=== PATIENT | female | born 1950 | race Caucasian/White ===

== ENCOUNTER → 2021-03-31 14:48 | Outpatient (CLI) | payer MEDICARE, SELFPAY ==
--- NOTE | 2021-03-31 14:51 | US_ITS ---
STUDY: ULTRASOUND OF THE FEMALE PELVIS - COMPLETE REASON FOR EXAM: Female, 70 years old. Pelvic fracture. Preop hysterectomy. Postmenopausal. A pessary is present during the transvaginal ultrasound. This was removed for the transvaginal exam. TECHNIQUE: Transabdominal and Transvaginal TECHNICAL QUALITY: Adequate. COMPARISON: None. FINDINGS: The uterus is anteverted and is in a midline position. The uterus measures 6.4 x 4.4 x 2.8 cm. Normal uterine cervix. The endometrium measures 3 mm in thickness, and is fluid distended. There is no demonstrated endometrial mass. There is no demonstrated myometrial mass. I.U.D. - The patient does not have an I.U.D. The right ovary is not visualized.. There is no visualized right adnexal mass or complex lesion. The left ovary is not visualized. There is no visualized left adnexal mass or complex lesion. There is no fluid in the cul-de-sac. The pre void volume of the bladder was for 33 ml. Bilateral ureteroceles are noted. The bladder is otherwise normal. Polycystic ovary disease: No. US/Pelvic (Non ) IMPRESSION: 1. Fluid within the endometrial canal. There is no evidence of any endometrial thickening or other uterine abnormality. 2. Nonvisualization the ovaries. 3. Bilateral ureteroceles otherwise normal urinary bladder. Electronically Signed: Brian Andres DO at 16:13 EDT Tel [phone], Service support ,
--- NOTE | 2021-03-31 14:51 | US_ITS ---
STUDY: ULTRASOUND OF THE FEMALE PELVIS - COMPLETE REASON FOR EXAM: Female, 70 years old. Pelvic fracture. Preop hysterectomy. Postmenopausal. A pessary is present during the transvaginal ultrasound. This was removed for the transvaginal exam. TECHNIQUE: Transabdominal and Transvaginal TECHNICAL QUALITY: Adequate. COMPARISON: None. FINDINGS: The uterus is anteverted and is in a midline position. The uterus measures 6.4 x 4.4 x 2.8 cm. Normal uterine cervix. The endometrium measures 3 mm in thickness, and is fluid distended. There is no demonstrated endometrial mass. There is no demonstrated myometrial mass. I.U.D. - The patient does not have an I.U.D. The right ovary is not visualized.. There is no visualized right adnexal mass or complex lesion. The left ovary is not visualized. There is no visualized left adnexal mass or complex lesion. There is no fluid in the cul-de-sac. The pre void volume of the bladder was for 33 ml. Bilateral ureteroceles are noted. The bladder is otherwise normal. Polycystic ovary disease: No. US/Transvaginal Non- IMPRESSION: 1. Fluid within the endometrial canal. There is no evidence of any endometrial thickening or other uterine abnormality. 2. Nonvisualization the ovaries. 3. Bilateral ureteroceles otherwise normal urinary bladder. Electronically Signed: Brian Andres DO at 16:13 EDT Tel [phone], Service support ,
== END ==
PROVIDERS: PCP Family Medicine; Referring Provider Obstetrics & Gynecology; Visit Provider Obstetrics & Gynecology
DX: R10.2 Pelvic and perineal pain (principal)
CPT/HCPCS: 76830; 76856

== ENCOUNTER 2021-05-19 05:16 | Day surgery (SDC) | payer MEDICARE, SELFPAY ==
--- NOTE | 2021-05-18 14:54 | EKG12_ITS ---
Test Reason : PRE-OP Blood Pressure : / mmHG Vent. Rate : 066 BPM Atrial Rate : 066 BPM P-R Int : 184 ms QRS Dur : 076 ms QT Int : 422 ms P-R-T Axes : 051 000 044 degrees QTc Int : 442 ms Sinus rhythm with frequent Premature ventricular complexes Low voltage QRS Borderline ECG Confirmed by LEEROY PINEDA, GAYATRI ([id number]), communications editor PAXTON WONG ([id number]) on 05/19/2021 9:53:08 AM Referred By: Anna Joshi Confirmed By:GAYATRI UMAÑA MD
[2021-05-18 15:56] LABS: Absolute Lymphocyte Count 2.62 X10^3/uL (0.83-4.51); Absolute Neutrophil Count 4.6 X10^3/uL (2.0-7.7); Basophil# 0.07 X10^3/uL; Basophil% 0.8 % (0-1); Eosinophil# 0.73 X10^3/uL; Eosinophils% 8.3 % (0-5); Hemoglobin 12.5 g/dL (12.0-15.0); Lymphocyte # 2.62 X10^3/ul (0.83-4.51); Lymphocyte % 29.9 % (19-41); Mean Corp Hgb Conc 32.9 g/dL (32-36); Mean Corpuscular Hgb 29.5 pg (27.0-32.0); Mean Corpuscular Volume 89.6 fL (81-99); Mean Platelet Vol. 9.6 fl (6.2-12.0); Monocyte# 0.67 X10^3/uL; Monocyte% 7.6 % (0-10); NRBC Flagged by Analyzer 0 % (0-5); Neutrophil # 4.63 X10^3/uL (2.7-7.7); Neutrophil % 52.8 % (47-70); Platelet Count 315 K/mm3 (150-450); RBC Distribution Width SD 49.3 fl (35.1-43.9); Red Blood Count 4.24 M/mm3 (4.2-5.4); White Blood Count 8.8 K/mm3 (4.4-11.0)
[2021-05-18 16:13] LABS: Magnesium 2.3 mg/dL (1.6-2.6)
[2021-05-18 16:21] LABS: AST(SGOT) 28 U/L (15-37); Alanine Aminotransfer ALT/SGPT 47 U/L (13-56); Albumin, Serum 3.8 g/dL (3.2-5.0); Alkaline Phosphatase 76 U/L (45-117); Anion Gap 5 (5-15); BUN 20 mg/dL (7-18); BUN/Creat Ratio 18.2 RATIO (10-20); Calcium,Total 9.5 mg/dL (8.5-10.1); Chloride 108 mmol/L (98-107); EST Glomerular Filtration Rate 52 mL/min (>60); Est Glom Filt Rate - Afr Amer 63 mL/min (>60); Estimated Creatinine Clearance 49.73 ml/min; Globulin 3.9 g/dL (2.2-4.2); Glucose 102 mg/dL (74-106); Potassium 4.3 mmol/L (3.5-5.1); Protein, Total 7.7 g/dL (6.4-8.2); Sodium Level 138 mmol/L (136-145)
[2021-05-19] VITALS (24 sets, daily range): BP systolic 76–112; BP diastolic 50–73; PULSE 44–63; RESP 14–18; TEMP 36.1–37.1; O2SAT 93–100; BMI 26.9; BMI 27.0
--- NOTE | 2021-05-19 | HYST_PTH ---
PATIENT: SKYLAR RO LOC: [facility] [place] U#:[id number] AGE/SX: 70/F ROOM: RE05/19/[address]: Dr. Anna Joshi MD : 1950 BED: DIS: 05/20/2021 SPEC #: [id number] RECD: 05/19/21 12:37 STATUS: JEANETTE REValarie #: [id number] CLIFFORD: 05/19/21 00:[address]: Anna Joshi DEPT: SURGICAL PATHOLOGY RECD BY: Sandeep Kenyon ENTERED: 05/19/21 12:38 SP TYPE: HYSTERECT OTHR DR: MD Dr. Linh Elliott DO Tissues: Uterus, NOS Procedures: Surgery Specimen Level V HEADER OPERATION: ERAS, vaginal hysterectomy, salpingo-oophorectomy PRE-OP DIAGNOSIS: Incomplete uterovaginal prolapse TISSUE SUBMITTED: Uterus, cervix, bilateral tubes and bilateral ovaries MICROSCOPIC DIAGNOSIS Uterus, cervix and bilateral fallopian tubes and ovaries, vaginal hysterectomy and bilateral salpingo-oophorectomy: Cervix ? mild chronic cystic cervicitis. Endometrium ? simple cystic hyperplasia without atypia. Myometrium ? an intramural leiomyoma (0.5 cm in diameter). Bilateral fallopian tubes - no pathologic diagnosis. Bilateral ovaries - no pathologic diagnosis. SJ:yobany 05/20/2021 MICROSCOPIC DESCRIPTION Slides are reviewed. GROSS DESCRIPTION Received in fixative is one container labeled with the patient's name and designated uterus, cervix, bilateral tubes and ovaries. The specimen consists of a hysterectomy specimen consisting of uterus with cervix and detached bilateral fallopian tubes and ovaries. The uterus with cervix weighs 37 gm and measures 7 x 3.5 x 2.5 cm. The serosal surface is zuluaga, glistening. The ectocervical mucosa is unremarkable. The external os is oval in contour. The endocervical canal measures 2.5 cm in thickness. The endocervical mucosa is zuluaga, glistening and unremarkable. The triangular endometrial cavity measures 3.5 cm in length and up to 1.5 cm in width. The endometrium is zuluaga, glistening without any mass lesion and measures 0.1 cm in thickness. Sections of the uterine wall do not reveal mass lesion and measures up to 1.5 cm in thickness. One fallopian tube measures 7 cm in length and 0.5 cm in diameter. The fimbrial end is identified. Sections reveal unremarkable cut surfaces. The adjacent ovary measures 1.2 x 0.5 x 0.5 cm. Sections reveal unremarkable cut surfaces. The second fallopian tube measures 6 cm in length and 0.5 cm in diameter. The fimbrial end is identified. Sections reveal unremarkable cut surfaces. No tubo-ovarian adhesions are identified. The adjacent second ovary measures 2 x 0.5 x 0.3 cm. Sections reveal unremarkable cut surfaces. Optometric Aide sections are submitted in eight cassettes as follows: 1 - anterior cervix, 2??posterior cervix, 3 & 4 - anterior uterine wall, 5 & 6 - posterior uterine wall, 7 - one fallopian tube and adjacent ovary, 8 - second fallopian tube and adjacent ovary. / SUPRIYA:yobany 05/19/21 TC:5 CPT: 25070
--- NOTE | 2021-05-19 05:19 | HP.PCM_ITS ---
History and Physical Date of Admission: 05/19/21 Intake Visit Reasons: [facility] [employer] medicaid form needs signed Chief Complaint: Pre op [facility] [employer] Tetry[employer] Boiling Tub Operator Required: No Is patient in pain?: No Allergies No Known Allergies Allergy (Verified 12/20/18 10:38) Medications NK 04/30/21 [History Confirmed 04/30/21] Is last menstrual period known: No Post menopausal: No Patient : No : No PFSH Medical History History of melanoma Migraines Seasonal allergies Surgical History History of torn meniscus of left knee S/P left knee surgery Family History Mother Diabetes Pancreatic cancer Father Diabetes Myocardial infarction Grandmother Diabetes Emphysema lung Social History Smoking Status: Former smoker alcohol intake: never substance use type: does not use caffeine: Yes what type of physical activity do you participate in: none seatbelt use: always do you feel safe at home: Yes additional social history: - retired from [employer] medicaid form needs signed Details: SKYLAR RO is a 70 year old who presents for Female Reproductive History Menopausal Symptoms: No night sweats Pregancy History 2 Elective abortions Hx Para 2 Spontaneous abortions Hx # Term Pregnancies Ectopic pregnancies Hx # Pregnancies Multiple births # of living children Past Pregnancies Del. Date Name GA/Weeks Outcome Route Bth Weight Gen Labor Lgth Anesthesia Del Locatn Provider FOB Unknown -1968 Unknown -1969 ROS Const Constitutional: Denies fatigue, night sweats, weight gain or weight loss ENT ENT: Reports system reviewed and no additional complaints, except as documented Cardio Card: Denies chest pain Resp Resp: Denies cough or dyspnea GI GI: Reports as per HPI; Denies abdominal pain, constipation, nausea or vomiting : Reports urinary frequency, urinary incontinence and urinary urgency; Denies nipple discharge, urinary hesitancy, vaginal discharge, vaginal dryness, vaginal odor or vaginal pruritus Musc Musc: Denies arthralgias, back pain or muscle weakness Skin Skin/Breast: Denies alopecia, change in hair, dry skin, breast mass, breast pain, breast skin changes or nipple discharge Neuro Neuro: Reports system reviewed and no additional complaints, except as documented Psych Psych: Reports system reviewed and no additional complaints, except as documented Endo Endo: Denies cold intolerance, excessive sweating, heat intolerance or polydipsia Gerry/Lymph Hematologic/Lymphatic: Denies easy bleeding, Denies easy bruising and Denies lymphadenopathy Exam Const General: cooperative, healthy appearing, comfortable, no acute distress and well developed Orientation: alert [facility] Head: normal to inspection and normocephalic Ears: hearing grossly normal bilaterally and external ears normal Nose: external nose normal and nares normal Face and sinus: normal facial exam Neck Neck: normal visual inspection and no lymphadenopathy Thyroid: thyroid normal Chest Chest palpation & inspection: normal inspection of the chest Resp Effort & Inspection: normal respiratory effort Auscultation: clear to auscultation bilaterally Cardio Rate: regular rate Rhythm: regular rhythm Heart Sounds: S1 normal and S2 normal GI Inspection: normal to inspection and non-distended Palpation: soft and no hepatosplenomegaly General: bladder normal to palpation External Female Exam: normal external appearance and normal appearance of the urethra Urethra: normal appearance of the urethra, normal palpation and no discharge Speculum Exam - Vagina: normal appearance of the vagina and normal vaginal discharge Speculum Exam - Cervix: normal appearance of the cervix and nontender Bimanual Exam- Vagina & Uterus: normal bimanual exam, uterine size normal, bladder normal to palpation, uterine shape normal, No tender, uterine mobility normal, consistency normal, normal palpation and non-tender Bimanual Exam- Adnexa, other: normal adnexae, adnexae mobile, no masses and normal Pelvic Support: normal Musc Other: gross motor intact no deficits, full bilateral strength Skin General: no rashes or lesions noted Neuro General: patient alert, patient awake, moves all extremities and no focal motor deficits Motor: muscle tone normal throughout Extrem General: normal to inspection and no pedal edema Psych Appearance: grossly normal Mental Status: mental status grossly normal Affect: normal affect Speech and Movement: speech and movement normal Coding Level of Care Code No Charge Diagnoses Incomplete uterovaginal prolapse N81.2 Assessment and Plan Assessment and Plan (1) Incomplete uterovaginal prolapse: Status: Acute Comment: plan TVHBSO combo case with Alexandra. Plan - Dr. Anna Joshi MD: After discussing the patient's diagnosis and treatment plan options, patient wishes to proceed with surgical management. I have discussed with the patient the risks, benefits, and alternatives of the procedure which include but are not limited to risks of anesthesia, bleeding, infection, possible damage to bowel, bladder, or surrounding vasculature which could lead to additional surgery to evaluate any complications. Patient agrees to procedure and wishes to proceed. ACOG/uptodate references given for additional information regarding procedure. UPDATE- I have seen the patient and performed any clinically relevant updates to the history and physical exam. Anna Joshi MD
[2021-05-19] MEDS: Enoxaparin 40 MG/0.4 ML Syringe SC (06:21)
[2021-05-19] MEDS: Celecoxib 200 MG Capsule 400 MG PO (06:22)
[2021-05-19] MEDS: Acetaminophen 500 MG Tablet 1000 MG PO ×3 (06:22→17:49)
[2021-05-19] MEDS: Scopolamine 1mg/72hr Patch 1 PATCH TD (06:22)
[2021-05-19] MEDS: Gabapentin 600 MG Tablet PO (06:22)
[2021-05-19] MEDS: Lactated Ringers 1,000 ML 40 ML IV ×3 (06:23→11:30)
[2021-05-19] MEDS: dexAMETHasone 10 MG/ML Vial 8 MG IV (06:23)
--- NOTE | 2021-05-19 07:37 | PCM.OPRPT ---
Problems Associated Problem List Diagnoses (1) Incomplete uterovaginal prolapse: Report of Operation Pre-Operative Diagnosis: see PL Post-Operative Diagnosis: same Surgery/Procedure Performed:: TVH BSO Description of Surgical Findings:: nl uterus tubes ovaries Type of Anesthesia: General Specimen's removed: uterus, tubes, ovaries Drains: aaron Fluids Replaced: crystalloid Description of Procedure: Patient was taken to the operating room and was placed under general anesthesia was prepped and draped in normal sterile fashion in the dorsal lithotomy position. Preoperative antibiotics and SCDs and Aaron catheter was placed inside the bladder. Weighted speculum was placed in the vagina and the anterior and posterior lip of the cervix was grasped with 2 Janelle clamps and circumferentially injected with dilute vasopressin. A circumferential incision was made with a scalpel and the posterior cul-de-sac was entered into sharply and a longneck speculum was placed. The anterior cul-de-sac was also dissected down and entered into sharply and the uterosacral ligaments were clamped cut and suture ligated bilaterally followed by the cardinal ligaments which were Clamped cut and suture ligated bilaterally with 0 Monocryl. The uterus serially descended and progressive bites were taken bilaterally up to the level of the utero-ovarian ligament bilaterally which was clamped transected and double ligated with 0 Monocryl suture and 0 Vicryl free tie. Bilateral fallopian tubes and ovaries were well visualized and noted be within normal limits and the IP ligament was transected across the base with a kenneth clamp, then ovaries and tubes removed and the pedicle double ligated with O monocryl. Excellent hemostasis was noted. The vagina was closed with [id number] 0 Vicryl pop offs including the posterior and anterior peritoneum in the reapproximation. Excellent hemostasis was noted. Then Dr. Morris began her portion of the procedure. Grafts/Implants Used: none Complications none Admit VTE Documentation VTE Present on Admission: No VTE Mechan Device Prophylaxis: SCD's VTE Pharm Prophylaxis ordered?: Yes Multi Select Codes Urinary/Genital Urinary/Genital CPT Codes: 95259 TVH+BS/O <250gr uterus
[2021-05-19] MEDS: Cefazolin 2 GM in 0.9% Normal Saline 100 ML IV (07:42)
[2021-05-19] MEDS: Lubricating Jelly 60 GM Tube 30 GM TOPICAL (07:55)
[2021-05-19 08:05] LABS: Bedside Glucose 108 mg/dL (70-110)
[2021-05-19] MEDS: Vasopressin 20 UNITS/ML Vial (11:25)
[2021-05-19] MEDS: Estrogens,Conj. 1 Tube 1 DOSE (11:27)
--- NOTE | 2021-05-19 11:34 | OP.PCM_ITS ---
Problems Associated Problem List Diagnoses (1) Incomplete uterovaginal prolapse: (2) TAD (stress urinary incontinence, female): Report of Operation Date of Procedure: 05/19/21 Pre-Operative Diagnosis: Incomplete uterovaginal prolapse, stress urinary incontinence Post-Operative Diagnosis: Same Surgery/Procedure Performed:: Anterior and posterior repair with dermis, bilateral sacrospinous ligament fixation, mid urethral sling insertion, cystourethroscopy Surgeon: Kay Morris Type of Anesthesia: General Estimated Blood Loss (mL): 250cc Description of Procedure: The patient is a 70-year-old female with pelvic organ prolapse and incontinence who presents for surgical intervention. Outpatient testing included urodynamics and cystoscopy. Informed consent was obtained. The patient was taken to the operating room and placed on the operating room table. Anesthesia monitored the head, neck, airway, IV access and vital signs throughout the case. Once anesthesia was appropriate ministered the patient was placed into dorsal lithotomy position was prepped and draped in usual sterile fashion. A Hairston catheter was inserted and the bladder was drained. Dr. Joshi subsequently performed her portion of the procedure and close the vaginal cuff. At this time the anterior vaginal wall was isolated and injected with vasopressin for hydrostatic dissection and hemostatic control. A midline vertical incision was made and sharp and blunt dissection was performed on both sides. The vaginal mucosa was not of good quality and continuously tore throughout the procedure. Very carefully blunt dissection was performed down to the area of the ischial spine bilaterally and the sacrospinous ligaments were freed from surrounding tissues. The Capio device was then used to pass an Ethibond suture through each sacrospinous ligament. The suture was then brought through the corner of the dermis and out into the vaginal mucosa, at the level of the apex. The dermis was then trimmed and sutured using interrupted 2-0 Vicryl at the bladder neck area and bilaterally at the white line. This procedure was performed on both sides. When the dermis lay flat against the bladder, the vaginal mucosa was closed in running interlocking fashion and the Ethibond sutures were tied into position reducing to the apical prolapse. The posterior vaginal wall remained significantly weak and prolapsed. The decision was made to repeat the same process posteriorly with Ethibond sutures and dermis bilaterally through the sacrospinous ligaments. This was performed without difficulty and the dermis was attached using 2-0 Vicryl interrupted sutures to the apex of the vaginal mucosa and bilaterally to the rectovaginal fascia, and at the area adjacent to the perineal body. The perineal body was brought together using 2 layers of interrupted 2-0 Vicryl suture. At this time the vaginal mucosa was closed over the dermis using running interlocking 2-0 Vicryl. Attention was then turned towards the mid urethra which was injected with vasopressin. A midline incision was made. Sharp and blunt dissection was per formed on either side of the urethra. Using the trocar, the time was passed into the obturator complex bilaterally and the sling was positioned against the urethra using the tensioning suture. The tensioning suture was then cut. The vaginal mucosa was then closed using running interlocking 2-0 Vicryl. At this time the Hairston catheter was removed. The patient had been given intravenous methylene blue. The cystoscope was then inserted through the urethra under direct visualization into the urinary bladder. Bilateral ureteral orifices were located on the area of the trigone. Both orifices were extremely small in caliber most consistent with a ureterocele. At this time blue jets of urine were observed bilaterally from each ureter. The remainder of the bladder mucosa was within normal limits with no evidence of injury, foreign body or hemorrhage. The urethra was visualized upon removal of the cystoscope as well and there were no injuries or abnormalities identified. At this time the cystoscope was removed and the Hairston catheter was replaced with 10 cc in the balloon. At this time the vagina was filled with estrogen cream and vaginal packing. The patient was then awakened and taken to the recovery room in good condition. There were no complications during this procedure. Grafts/Implants Used: Dermis, Altis mid urethral sling Complications None Admit VTE Documentation VTE Present on Admission: Yes VTE Mechan Device Prophylaxis: SCD's VTE Pharm Prophylaxis ordered?: Yes
[2021-05-19] MEDS: Lactated Ringers 1,000 ML 70 ML IV ×2 (12:31→17:46)
[2021-05-19] MEDS: Ketorolac 30 MG/ML Syringe IV ×2 (12:33→17:45)
[2021-05-19 13:38] LABS: Hematocrit 31.5 % (37-47); Hemoglobin 10.1 g/dL (12.0-15.0); Mean Corp Hgb Conc 32.1 g/dL (32-36); Mean Corpuscular Hgb 29.3 pg (27.0-32.0); Mean Corpuscular Volume 91.3 fL (81-99); Mean Platelet Vol. 9.6 fl (6.2-12.0); Platelet Count 242 K/mm3 (150-450); RBC Distribution Width CV 14.7 % (11.6-14.6); RBC Distribution Width SD 49.2 fl (35.1-43.9); Red Blood Count 3.45 M/mm3 (4.2-5.4); White Blood Count 11.5 K/mm3 (4.4-11.0)
--- NOTE | 2021-05-19 14:05 | SUR.PHASEI ---
PT AWAKENS EASILY. BUT VERY DROWSY
--- NOTE | 2021-05-19 14:08 | PCM.DC ---
Discharge Instructions Diet Discharge Diet: No restrictions Activity Discharge Activity: Return to Normal Activity, May Not Drive (while taking narcotic pain medications.) and May Shower May resume sexual activity in: 6-8 weeks Dressing / Incision Call your doctor if your incision/area has: Continuous Slow Oozing, Sudden Increased Bleeding, Increased Pain/ Swelling, Increased Redness and Foul Smelling Discharge Call your doctor if you observe: Fever of 101 or Higher, Inability to urinate, Inability to have a bowel movement and Using more than 1 pad per hour Follow Up Care Please Follow Up With: Anna Joshi MD Test Results: Test results from this visit will be discussed in further detail at your follow-up appointment, if applicable. Discharge Plan Admission Primary Reason for Your Visit: vaginal hysterectomy Attending Provider: Anna Joshi Primary Care Provider: Linh Juarez Consulting Providers: Kay Morris Discharge Orders/Prescriptions Prescriptions: New oxycodone-acetaminophen [Percocet] 5-325 mg tablet 1 tab PO Q6H PRN (Reason: pain) 7 Days Qty: 20 RF: 0 naproxen [naproxen] 500 MG tablet 500 mg PO BID PRN PRN (Reason: Pain) Qty: 30 RF: 1 Continued alendronate 70 mg tablet 70 mg PO SA RF: 0 naproxen 250 mg Tablet 500 mg PO BID PRN (Reason: Pain) RF: 0 zolmitriptan 5 mg tablet 5 mg PO PRN PRN (Reason: MIGRAINES) RF: 0 estradiol 0.01 % (0.1 mg/gram) cream 1 applic VAGINAL .3 TIMES WEEKLY RF: 0 Women's One Daily 18 mg iron-400 mcg-500 mg Ca Tablet 1 tab PO DAILY RF: 0 Referrals / Follow Up: Linh Juarez DO [Primary Care Provider] - Disposition Disposition (needs filled in before D/C Order can be placed): Home, Self Care
--- NOTE | 2021-05-19 20:20 | PCS.PANDOC ---
PANDEMIC DOCUMENTATION INITIATED: Date: 03/02/2021 Time: 190
[2021-05-19] MEDS: Docusate Sodium 100 MG Capsule PO (22:29)
[2021-05-19] MEDS: Cephalexin 500 MG Capsule PO (22:29)
[2021-05-20] VITALS: BP 102/53; PULSE 59; RESP 18; TEMP 36.7; O2SAT 98; BMI 27.0
[2021-05-20] MEDS: Acetaminophen 500 MG Tablet 1000 MG PO ×2 (00:05→05:35)
[2021-05-20] MEDS: Ketorolac 30 MG/ML Syringe IV ×3 (00:06→12:31)
[2021-05-20 05:08] VITALS: BMI 27.0
[2021-05-20 05:18] LABS: Hematocrit 29.3 % (37-47); Hemoglobin 9.6 g/dL (12.0-15.0); Mean Corp Hgb Conc 32.8 g/dL (32-36); Mean Corpuscular Volume 88.5 fL (81-99); Mean Platelet Vol. 9.4 fl (6.2-12.0); Platelet Count 229 K/mm3 (150-450); RBC Distribution Width CV 14.9 % (11.6-14.6); RBC Distribution Width SD 48.4 fl (35.1-43.9); Red Blood Count 3.31 M/mm3 (4.2-5.4); White Blood Count 13.1 K/mm3 (4.4-11.0)
[2021-05-20] MEDS: 0.9% Saline Lock 10 ML Syringe IV ×2 (05:37→12:40)
[2021-05-20 05:45] VITALS: BP 120/62; PULSE 51; RESP 18; TEMP 36.8; O2SAT 97
--- NOTE | 2021-05-20 07:58 | PCM.PN.OB ---
Subjective Subjective patient recovering well, denies CP, SOB, N, or V. patient is up to bedside,tolerating adequate po, and pain is controlled with oral medications. Hairston cath remains Objective Data Objective Data Vital Signs: Vital Signs Temp Pulse Resp BP Pulse Ox 98.2 F 51 L 18 120/62 97 05/20/21 05:45 05/20/21 05:45 05/20/21 05:45 05/20/21 05:45 05/20/21 05:45 Oxygen Flow Rate (L/min) 2 Oxygen Delivery Method Room Air Weight: 182 lb 12.211 oz Body Mass Index (BMI) 26.9 Intake & Output: Intake and Output for Last 24 Hours 05/18/21 05/19/21 05/20/21 23:59 23:59 23:59 Intake Total 4277.67 / 4277.67 Output Total 810 / 810 450 / 450 Balance 3467.67 / 3467.67 -450 / -450 Lab / Micro Data Result Diagrams: 05/20/21 05:02 05/18/21 15:04 Labs: Laboratory Results - last 24 hr 05/19/21 06:01: POC Glucose 108 05/19/21 12:53: WBC 11.5 H, RBC 3.45 L, Hgb 10.1 L, Hct 31.5 L, MCV 91.3, MCH 29.3, MCHC 32.1, RDW Std Deviation 49.2 H, RDW Coeff of Venkata 14.7 H, Plt Count 242, MPV 9.6 05/20/21 05:02: WBC 13.1 H, RBC 3.31 L, Hgb 9.6 L, Hct 29.3 L, MCV 88.5, MCH 29.0, MCHC 32.8, RDW Std Deviation 48.4 H, RDW Coeff of Venkata 14.9 H, Plt Count 229, MPV 9.4 Micro: Microbiology 05/18/21 16:59 Nasal Secretion SARS-CoV-2 Antigen (Rapid) - Final Physical Exam Const alert, oriented x3 and no apparent distress Resp normal respiratory effort GI soft to palpation and non-distended Inspection: incision other (dressing dry and intact) Narrative: Minimal drainage on peripad Bladder / Kidney Exam: catheter in place Assessment & Plan (1) Incomplete uterovaginal prolapse: COMMENT: plan TVHBSO combo case with [place]. (2) TAD (stress urinary incontinence, female): PLAN: patient is s/p 1 POD 1 1. routine ERAS protocol postop care- increase ambulation, encourage oral intake and oral control of pain. lovenox and scds for dvt prophylaxis. See Dr Morris orders for further management and discharge.
[2021-05-20 08:40] VITALS: BMI 27.0
[2021-05-20] MEDS: Docusate Sodium 100 MG Capsule PO (10:37)
[2021-05-20] MEDS: Enoxaparin 40 MG/0.4 ML Syringe SC (10:37)
[2021-05-20] MEDS: Cephalexin 500 MG Capsule PO (10:37)
[2021-05-20 11:45] VITALS: BP 118/62; PULSE 58; RESP 18; TEMP 36.6; O2SAT 98
--- NOTE | 2021-05-20 12:24 | PCM.PN.GU ---
Subjective Subjective Patient is sitting up in bed. Just finished lunch. She has not been out of bed to ambulate yet. She has not yet voided and her catheter was removed approximately 4 hours ago. She is having stress urinary incontinence every time she coughs. She is complaining of a sore throat from the intubation yesterday. Her pain is well managed but she complains of not sleeping well last night. Objective Data Objective Data Vital Signs: Vital Signs Temp Pulse Resp BP Pulse Ox 98.2 F 51 L 18 120/62 97 05/20/21 05:45 05/20/21 05:45 05/20/21 05:45 05/20/21 05:45 05/20/21 05:45 Oxygen Flow Rate (L/min) 2 Oxygen Delivery Method Room Air Weight: 82.9 kg Body Mass Index (BMI) 26.9 Intake & Output: Intake and Output for Last 24 Hours 05/18/21 05/19/21 05/20/21 23:59 23:59 23:59 Intake Total 4277.67 / 4277.67 564.83 / 564.83 Output Total 810 / 810 700 / 700 Balance 3467.67 / 3467.67 -135.17 / -135.17 Lab / Micro Data Result Diagrams: 05/20/21 05:02 05/18/21 15:04 Labs: Laboratory Results - last 24 hr 05/19/21 12:53: WBC 11.5 H, RBC 3.45 L, Hgb 10.1 L, Hct 31.5 L, MCV 91.3, MCH 29.3, MCHC 32.1, RDW Std Deviation 49.2 H, RDW Coeff of Venkata 14.7 H, Plt Count 242, MPV 9.6 05/20/21 05:02: WBC 13.1 H, RBC 3.31 L, Hgb 9.6 L, Hct 29.3 L, MCV 88.5, MCH 29.0, MCHC 32.8, RDW Std Deviation 48.4 H, RDW Coeff of Venkata 14.9 H, Plt Count 229, MPV 9.4 Micro: Microbiology 05/18/21 16:59 Nasal Secretion SARS-CoV-2 Antigen (Rapid) - Final Physical Exam Const alert and oriented x3 HEENT normocephalic and head/scalp atraumatic Eyes conjunctivae normal General Eye: normal appearance of both eyes Neck supple General: trachea midline Lymph Lymphatic: no lymphedema noted Chest Chest: symmetrical chest wall rise Resp normal respiratory effort Effort and Inspection: able to speak in complete sentences Cardio regular rate and regular rhythm GI soft to palpation and non-tender no CVA tenderness Back/Spine no CVA tenderness Extremity normal to inspection Extremity Narrative: SCDs are in place Skin no rashes or lesions noted Neuro oriented x3, CN's II-XII intact bilaterally and moves all extremities Psych mental status grossly normal, thought process normal and cooperative Assessment & Plan Assessment/Plan (1) TAD (stress urinary incontinence, female): PLAN: Out of bed to ambulate Await trial of void with postvoid residual to be called to my office KANDICE Plan for home later today (2) Incomplete uterovaginal prolapse:
--- NOTE | 2021-05-20 12:28 | PCM.DC ---
Discharge Instructions Diet Discharge Diet: No restrictions Activity May resume sexual activity in: 8 weeks Dressing / Incision Call your doctor if your incision/area has: Continuous Slow Oozing, Sudden Increased Bleeding, Increased Pain/ Swelling, Increased Redness and Foul Smelling Discharge Call your doctor if you observe: Fever of 101 or Higher, Inability to urinate, Inability to have a bowel movement, Using more than 1 pad per hour and Uncontrolled pain Follow Up Care Please Follow Up With: Anna Joshi MD When: , call office for appt Test Results: Test results from this visit will be discussed in further detail at your follow-up appointment, if applicable. Discharge Plan Admission Primary Reason for Your Visit: vaginal hysterectomy Attending Provider: Anna Joshi Primary Care Provider: Linh Juarez Consulting Providers: Kay Morris Discharge Orders/Prescriptions Prescriptions: New oxycodone-acetaminophen [Percocet] 5-325 mg tablet 1 tab PO Q6H PRN (Reason: pain) 7 Days Qty: 20 RF: 0 naproxen [naproxen] 500 MG tablet 500 mg PO BID PRN PRN (Reason: Pain) Qty: 30 RF: 1 cephalexin [cephalexin] 500 MG capsule 500 mg PO Q12 3 Days Qty: 6 RF: 0 Continued alendronate 70 mg tablet 70 mg PO SA RF: 0 naproxen 250 mg Tablet 500 mg PO BID PRN (Reason: Pain) RF: 0 zolmitriptan 5 mg tablet 5 mg PO PRN PRN (Reason: MIGRAINES) RF: 0 estradiol 0.01 % (0.1 mg/gram) cream 1 applic VAGINAL .3 TIMES WEEKLY RF: 0 Women's One Daily 18 mg iron-400 mcg-500 mg Ca Tablet 1 tab PO DAILY RF: 0 Referrals / Follow Up: Linh Juarez, [Primary Care Provider] - Disposition Disposition (needs filled in before D/C Order can be placed): Home, Self Care
[2021-05-20 12:40] VITALS: BMI 27.0
== END 2021-05-20 14:30 | disposition home or self-care (01) ==
LOC: SDC 05:17 → AC 05:17 → ACINP 12:51 → AC 12:54 → MS2 16:26
PROVIDERS: Anesthesiology; Urology; PCP Family Medicine; Referring Provider Obstetrics & Gynecology; Visit Provider Obstetrics & Gynecology
PROC: (CPT 58260; principal; 2021-05-19 07:10)
PROC: (CPT 57260; 2021-05-19 07:10)
DX: N81.2 Incomplete uterovaginal prolapse (principal); N72 Inflammatory disease of cervix uteri; N85.01 Benign endometrial hyperplasia; D25.1 Intramural leiomyoma of uterus; N39.46 Mixed incontinence; N95.2 Postmenopausal atrophic vaginitis; N36.42 Intrinsic sphincter deficiency (ISD); M19.90 Unspecified osteoarthritis, unspecified site; Z87.891 Personal history of nicotine dependence
CPT/HCPCS: 00860; 57260; 57288; 58262; 36415; 80053; 82962; 83735; 85025; 85027; 86850; 86900; 86901; 87426; 88307; 93005; 99251; C9803; J7120; A4216; C1758; G0463; J2405; Q9968

== ENCOUNTER → 2021-06-04 | Outpatient (CLI) | payer MEDICARE, SELFPAY | END | disposition home or self-care (01) | PROVIDERS: PCP Family Medicine; Visit Provider Obstetrics & Gynecology | DX: N39.3 Stress incontinence (female) (male) (principal); N89.8 Other specified noninflammatory disorders of vagina | CPT/HCPCS: 87070; 87086; 87088; 87205 ==

== ENCOUNTER 2024-01-26 06:28 | Day surgery (SDC) | payer MEDICARE, SELFPAY ==
[2024-01-26] VITALS (8 sets, daily range): BP systolic 105–126; BP diastolic 65–107; PULSE 73–86; RESP 16–20; TEMP 36.2–36.9; O2SAT 93–97; BMI 25.4
[2024-01-26] MEDS: Lactated Ringers 1,000 ML 15 ML IV (06:55)
--- NOTE | 2024-01-26 08:16 | PCM.PRE.AN2 ---
ASA Classification* ASA Classification ASA Classification: 3 Assessment & Plan Anesthesia* Anesthesia Assessment Anesthesia Assessment: Discussed sedation and/or anesthesia options, risks, benefits, and alternatives with patient/parents/legal guardian/POA. Questions invited. The patient/parents/legal guardian/POA seems to understand and agrees to proceed with anesthesia plan. Reviewed the physical assessment, medical history, allergy history and patient home medications list prior to surgery/procedure/anesthetic and documented any changes. Performed airway and anesthesia risk assessments. Anesthesia Type Anesthesia Type: General (see written pre anesthesia record for full assessment) Anesthesia Focused Assessment* Temperature: 98.5 F Pulse Rate: 73 Blood Pressure: 126/70 Respiratory Rate: 16 Pulse Ox: 96 Airway Assessment Mouth opens: >3 cm Mallampati Score: II Focused Labs Anesthesia Preop lab: CBC WBC 13.1 K/mm3 (4.4-11.0) H 05/20/21 05:02 RBC 3.31 M/mm3 (4.2-5.4) L 05/20/21 05:02 Hgb 9.6 g/dL (12.0-15.0) L 05/20/21 05:02 Hct 29.3 % (37-47) L 05/20/21 05:02 Plt Count 229 K/mm3 (150-450) 05/20/21 05:02 CHEMISTRY Potassium 4.3 mmol/L (3.5-5.1) 05/18/21 15:04 Sodium 138 mmol/L (136-145) 05/18/21 15:04 Magnesium 2.3 mg/dL (1.6-2.6) 05/18/21 15:03 BUN 20 mg/dL (7-18) H 05/18/21 15:04 Creatinine 1.10 mg/dL (0.55-1.02) H 05/18/21 15:04 Glucose 102 mg/dL (74-106) 05/18/21 15:04 POC Glucose 108 mg/dL (70-110) 05/19/21 06:01 COAG Pre-Assessment Diagnosis/Proposed Procedure Planned Operative Procedure(s): CYSTO BULKAMID INJECTION Anesthesia History Anesthesia History - [employer]: Anesthesia History - [employer] Hx Hospitalization No 01/06/24 11:10 Any Problems With Anesthesia No 01/06/24 11:10 Cholinesterase deficiency No 01/06/24 11:10 You/Your Family Experience No 01/06/24 11:10 fever (hyperthermia) with Relationship Recent Exposure to Contagious No 01/26/24 06:53 Disease Does patient have nerve No 01/06/24 11:10 stimulator Patient instructed to have device shut off --Does patient have Pacemaker No 01/26/24 06:53 or ICD? When Was Last Pacemaker Check QUESTION #4 FULL TEXT: You/Your Family Experience fever (hyperthermia) with Anesthesia Last Oral Intake Last Oral intake: Last Oral Intake NPO since 18:00 01/26/24 06:53 Meds taken in AM with sips of No 01/26/24 06:53 water? Meds patient instructed to take am of surgery PONV PONV - [employer] airports: PONV - [employer] Female Yes 01/06/24 11:10 HX of Motion Sickness No 01/06/24 11:10 HX of N/V After Surgery No 01/06/24 11:10 Non-Smoker Yes 01/06/24 11:10 Duration of Surgery greater No 01/06/24 11:10 than 60 minutes Number of Risk Factors 2 01/06/24 11:10 PONV Score Moderate Risk 01/06/24 11:10 Height & Weight Height & Weight: Anesthesia: Height & Weight Height 5 ft 9 in 01/26/24 06:53 Weight: 78 kg 01/26/24 06:53 Body Mass Index (BMI) 25.4 01/26/24 06:53 Respiratory Assessment Respiratory Assessment - [employer]: Respiratory Tract Infection Hx - [employer] Hx Respiratory Tract Infection No 01/06/24 11:10 STOP Sleep Apnea STOP Sleep Apnea - [employer]: STOP Sleep Apnea - [employer] Hx Hypertension No 01/06/24 11:10 Hx Sleep Apnea No 01/06/24 11:10 CPAP BIPAP Do you snore loudly (louder No 01/06/24 11:10 than talking or can be heard Do you often feel tired/ Yes 01/06/24 11:10 fatigued/ sleepy during daytime? Has anyone observed you stop No 01/06/24 11:10 breathing during sleep? STOP Results Negative 01/06/24 11:10 QUESTION #5 FULL TEXT : Do you snore loudly (louder than talking or can be heard through closed doors)? 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 Specify any problems Hx of Preganancy in last 3 No 01/06/24 11:10 Months Nurse Filling Out Transfusion DSCHRIBER 01/06/24 11:10 & Questions: Date: 01/06/24 01/06/24 11:10 Time: 11:13 01/06/24 11:10 Patient unable to answer at this time (ie. confused, unrespo /Reproduction History /Reproductive History - [employer]: /Reproductive Hx- [employer] Hx Now No 01/06/24 11:10 Gestational Age (in weeks): EDC: Hx Hx Para Hx Section SAB No 01/06/24 11:10 Active Medications Active Medications: Current Medications Generic Name Dose Route Start Last Admin Trade Name Freq PRN Reason Stop Dose Admin Cefazolin Sodium 2 gm/ Sodium 110 mls @ 150 mls/hr 01/26/24 08:20 Chloride IV 01/26/24 09:03 PREOP ONE Lactated Ringer's 1,000 mls @ 15 mls/hr 01/26/24 06:45 01/26/24 06:55 IV 15 mls/hr .Q48H YADIRA Administration PFSH Medical History Post-menopausal Anxiety Anemia Asthma COPD (chronic obstructive pulmonary disease) Shortness of breath on exertion TAD (stress urinary incontinence, female) Wears glasses Cancer Arthritis History of diverticulitis Former smoker Leg cramps History of edema Hx of vaginal delivery History of melanoma Migraines Seasonal allergies Home Medications ?Medication ?Instructions ?Recorded ?Last Taken ?Type alendronate 70 mg tablet 70 mg PO SA 05/12/21 Unknown History zolmitriptan 5 mg tablet 5 mg PO PRN PRN MIGRAINES 05/12/21 Unknown History albuterol sulfate 2.5 mg/3 mL 2.5 mg inhalation Q6H PRN PRN 01/06/24 Unknown History (0.083 %) solution for nebulization wheezing albuterol sulfate 90 mcg/actuation 2 puff inhalation Q4H PRN PRN 01/06/24 Unknown History aerosol inhaler wheezing biotin 10,000 mcg chewable tablet 10,000 mcg PO DAILY 01/06/24 Unknown History (Hair, Skin and Nails (biotin)) cholecalciferol (vitamin D3) 50 150 mcg PO DAILY 01/06/24 Unknown History mcg (2,000 unit) capsule (Vitamin D3) cyclosporine 0.05 % eye drops in a 1 drp ophthalmic (eye) BID 01/06/24 Unknown History dropperette fexofenadine 180 mg tablet 180 mg PO DAILY 01/06/24 Unknown History fluticasone furoate 200 1 inh inhalation DAILY 01/06/24 Unknown History mcg-vilanterol 25 mcg/dose inhalation powder (Breo Ellipta) magnesium 250 mg tablet 500 mg PO DAILY 01/06/24 Unknown History melatonin 10 mg capsule 30 mg PO QHS 01/06/24 Unknown History naproxen 500 mg tablet 500 mg PO DAILY PRN PRN pain 01/06/24 Unknown History turmeric 400 mg capsule 400 mg PO DAILY 01/06/24 Unknown History Allergy/AdvReac Type Severity Reaction Status Date / Time shellfish derived (lobster) Allergy Severe Angioedema Verified 01/26/24 06:52 latex Allergy Intermediate Hives Verified 01/26/24 06:52 Family History Mother Diabetes Pancreatic cancer Father Diabetes Myocardial infarction Grandmother Diabetes Emphysema lung Surgical History Hx of vaginal hysterectomy Hx of dilation and curettage History of partial hysterectomy Hx of colonoscopy History of torn meniscus of left knee S/P left knee surgery Social History Smoking Status: Former smoker alcohol intake: never substance use type: does not use caffeine: Yes what type of physical activity do you participate in: none seatbelt use: always do you feel safe at home: Yes additional social history: - retired from [employer] Review of Systems (Anesthesia) ROS Narrative System reviewed and no additional complaints, except as documented.
--- NOTE | 2024-01-26 08:20 | TISS_PTH ---
PATIENT: SKYLAR RO LOC: [facility] U#:[id number] AGE/SX: 73/F ROOM: RE01/26/[address]: Dr. Kay Morris MD : 1950 BED: DIS: 01/26/2024 SPEC #: [id number] RECD: 01/26/24 10:23 STATUS: JENAETTE DONA #: [id number] CLIFFORD: 01/26/24 08:[address]: Kay Morris DEPT: SURGICAL PATHOLOGY RECD BY: Reynold Mistry ENTERED: 01/26/24 12:17 SP TYPE: Tissue Bx OT DR: JEY Champagne Tissues: Vagina, NOS Procedures: Surgery Specimen Level III HEADER OPERATION: Injection Bulkamid, removal of mesh PRE-OP DIAGNOSIS: Intrinsic sphincter deficiency, stress urinary incontinence, vaginal exposure of mesh TISSUE SUBMITTED: Vaginal mesh MICROSCOPIC DIAGNOSIS Vaginal mesh: Mesh (gross only). Adherent fragments of calcified material. [facility] 01/30/2024 MICROSCOPIC DESCRIPTION Slides are reviewed. GROSS DESCRIPTION Received in fixative is one container labeled with the patient's name and designated Vaginal mesh. The specimen consists of a piece of mesh measuring 2.0 x 1.0 x 0.1cm. Multiple fragments of zuluaga- brownish indurated material is also noted adherent to the mesh. These fragments measures in aggregate 1.0 x 0.5 x 0.2cm. Mesh is for gross identification only. Indurated material is submitted in one cassette after decalcification in entirety. [facility] 01/26/2024 TC:5 CPT:22958,77232
[2024-01-26] MEDS: Cefazolin 2 GM in 0.9% Normal Saline (100mL Bag) 100 ML IV (08:25)
--- NOTE | 2024-01-26 08:26 | OP.PCM_ITS ---
Problems Associated Problem List Diagnoses (1) TAD (stress urinary incontinence, female): Report of Operation Date of Procedure: 01/26/24 Pre-Operative Diagnosis: Intrinsic sphincter deficiency, stress urinary incontinence, vaginal exposure of mesh Post-Operative Diagnosis: Same Surgery/Procedure Performed:: Removal of exposed vaginal mesh, cystoscopy with Bulkamid injection Surgeon: Kay Morris Type of Anesthesia: General Description of Procedure: The patient is a 73-year-old female with a mesh exposure from a mid urethral sling that was inserted at the time of a prolapse repair. She was determined to have an intrinsic sphincter deficiency and significant stress incontinence after her reconstruction. Options were discussed and she has decided to proceed with a Bulkamid injection and removal of exposed mesh. Informed consent was obtained. The patient was taken to the operating room and placed on the operating room table. Anesthesia monitored the head, neck, airway, IV access and vital signs throughout the case. Once anesthesia was appropriately administered, the patient was placed into dorsolithotomy and Trendelenburg position was prepped and draped in usual sterile fashion. A 16 [place] Hairston catheter was inserted to straight drain and the bladder was drained. The exposed mesh was easily identified and grasped with a hemostat. Using Metzenbaums, sharp dissection surrounding the mesh was performed and as much as possible was excised. The Hairston catheter was then removed. At this time the Bulkamid scope was assembled and inserted into the bladder. The needle was placed into the bladder at the [address] o'[address] position all the way to 2 cm. The entire apparatus was retracted and the needle with the bevel facing the lumen was inserted submucosally and one half of a Bulkamid syringe was injected with some pillowing. This process was repeated at the patient's 5:00, 1:00 and 11:00 positions with coaptation of her urethra in this area. There is no issue with bleeding. The scope was removed. The patient was awakened and taken to the recovery room in good condition. There were no complications during this procedure. Grafts/Implants Used: Bulkamid Complications None Admit VTE Documentation VTE Present on Admission: Yes VTE Mechan Device Prophylaxis: SCD's VTE Pharm Prophylaxis ordered?: No Reason prophylaxis not ordered:: Treatment Not Indicated
--- NOTE | 2024-01-26 08:30 | EX.PCM.DISCH ---
Discharge Instructions Diet Discharge Diet: No restrictions Activity Discharge Activity: Return to Normal Activity Dressing / Incision Call your doctor if your incision/area has: Continuous Slow Oozing, Sudden Increased Bleeding and Foul Smelling Discharge Call your doctor if you observe: Fever of 101 or Higher, Inability to urinate and Inability to have a bowel movement Follow Up Care Please Follow Up With: Kay Morris MD When: Next week in the office. Test Results: Test results from this visit will be discussed in further detail at your follow-up appointment, if applicable. Discharge Plan Admission Attending Provider: Kay Morris Primary Care Provider: Sophia Loaiza NP Instructions Print Language: Welsh Discharge Orders/Prescriptions Prescriptions: New oxycodone-acetaminophen [Percocet] 5-325 mg tablet 1 tab PO Q8H PRN (Reason: pain) 3 Days Qty: 10 0RF cephalexin 500 mg capsule 500 mg PO Q12 3 Days Qty: 6 0RF Continued alendronate 70 mg tablet 70 mg PO SA zolmitriptan 5 mg tablet 5 mg PO PRN PRN (Reason: MIGRAINES) albuterol sulfate 2.5 mg /3 mL (0.083 %) solution for nebulization 2.5 mg inhalation Q6H PRN PRN (Reason: wheezing) fluticasone furoate-vilanterol [Breo Ellipta] 200-25 mcg/dose blister with device 1 inh inhalation DAILY albuterol sulfate 90 mcg/actuation HFA aerosol inhaler 2 puff INHALATION Q4H PRN PRN (Reason: wheezing) cyclosporine 0.05 % dropperette 1 drp ophthalmic (eye) BID magnesium 250 mg tablet 500 mg PO DAILY turmeric 400 mg capsule 400 mg PO DAILY cholecalciferol (vitamin D3) [Vitamin D3] 50 mcg (2,000 unit) capsule 150 mcg PO DAILY Hair, Skin and Nails (biotin) 10,000 mcg tablet,chewable 10,000 mcg PO DAILY fexofenadine 180 mg tablet 180 mg PO DAILY melatonin 10 mg capsule 30 mg PO QHS naproxen 500 mg tablet 500 mg PO DAILY PRN PRN (Reason: pain) Referrals / Follow Up: Sophia Loaiza NP, HAND II THERMAL CUTTER-C [Primary Care Provider] - Disposition Disposition (needs filled in before D/C Order can be placed): Home, Self Care
--- NOTE | 2024-01-26 09:07 | PCM.POST.ANE ---
Anesthesia: Postop Eval I Current Vital Signs Temperature: 97.1 F Pulse Rate: 81 Blood Pressure: 105/65 Respiratory Rate: 20 Pulse Ox: 94 Assessment Airway patent: Yes Spontaneous unlabored respirations: Yes nausea: No Vomiting: No Anesthesia Complication: No Fluid Hydration Crystalloid volume administer (ml): 500 Total IV fluid infused: 500 Progress Note Anesthesia document: Postop Eval 1 completed: Yes
--- NOTE | 2024-01-26 09:35 | POSTOPAN2_ITS ---
Anesthesia Postop Eval I Sum Postop Eval Completion status Anesthesia document: Postop Eval 1 completed: Yes Anesthesia Postop Eval I Summary Anesthesia Postop Eval I Summary: Anesthesia Postop Eval I: Assessment Summary Airway patent Yes 01/26/24 09:08 [employer] DEPARTMENT [email or web address] Spontaneous unlabored Yes 01/26/24 09:08 [employer]Y DEPARTMENT SUPERVISOR.CSIR respirations Mental status nausea No 01/26/24 09:08 [employer]ERSEY DEPARTMENT SUPERVISOR.CSIR Vomiting No 01/26/24 09:08 [employer]ERSEY DEPARTMENT SUPERVISOR.CSIR Anesthesia Postop Eval I: Fluid Summary Crystalloid volume administer 500 01/26/24 09:08 [employer]Y DEPARTMENT SUPERVISOR.CSIR (ml) Colloids volume administered ( ml) Blood Product volume administered (ml) Total IV fluid infused 500 01/26/24 09:08 [employer]ERSEY DEPARTMENT SUPERVISOR.CSIR Anesthesia Postop Eval I: Summary Notes Anesthesia Complication No 01/26/24 09:08 [employer]ER[employer]Y DEPARTMENT SUPERVISOR.CSIR Anesthesia Complication Comment: Post-operative progress note Anesthesia: Postop Eval II Evaluation Mental status: Awake Pain Level: 0 nausea: No Vomiting: No
--- NOTE | 2024-01-26 09:35 | PCM.POSTANE2 ---
Anesthesia Postop Eval I Sum Postop Eval Completion status Anesthesia document: Postop Eval 1 completed: Yes Anesthesia Postop Eval I Summary Anesthesia Postop Eval I Summary: Anesthesia Postop Eval I: Assessment Summary Airway patent Yes 01/26/24 09:08 ENGINE TEST CELL [email or web address] Spontaneous unlabored Yes 01/26/24 09:08 ENGINE TEST CELL TECHNICIAN.CSIR respirations Mental status nausea No 01/26/24 09:08 ENGINE TEST CELL TECHNICIAN.CSIR Vomiting No 01/26/24 09:08 ENGINE TEST CELL TECHNICIAN.CSIR Anesthesia Postop Eval I: Fluid Summary Crystalloid volume administer 500 01/26/24 09:08 ENGINE TEST CELL TECHNICIAN.CSIR (ml) Colloids volume administered ( ml) Blood Product volume administered (ml) Total IV fluid infused 500 01/26/24 09:08 ENGINE TEST CELL TECHNICIAN.CSIR Anesthesia Postop Eval I: Summary Notes Anesthesia Complication No 01/26/24 09:08 ENGINE TEST CELL TECHNICIAN.CSIR Anesthesia Complication Comment: Post-operative progress note Anesthesia: Postop Eval II Evaluation Mental status: Awake Pain Level: 0 nausea: No Vomiting: No
== END 2024-01-26 10:07 | disposition home or self-care (01) ==
LOC: SDC 06:36 → AC 06:36
PROVIDERS: PCP Nurse Practitioner Family; Referring Provider Urology; Visit Provider Urology
PROC: 3E0K8GC Introduction of Other Therapeutic Substance into Genitourinary Tract, Via Natural or Artificial Opening Endoscopic (ICD-10-PCS; CPT 52287; principal; 2024-01-26 08:10)
DX: N39.3 Stress incontinence (female) (male) (principal); N36.42 Intrinsic sphincter deficiency (ISD); N95.2 Postmenopausal atrophic vaginitis; T83.721A Exposure of implanted vaginal mesh into vagina, initial encounter; R35.1 Nocturia; Z79.51 Long term (current) use of inhaled steroids; Z87.891 Personal history of nicotine dependence; X58.XXXA Exposure to other specified factors, initial encounter
CPT/HCPCS: 57295; 00940; 88304; J7120; J2405

== ENCOUNTER → 2024-08-28 | Outpatient (CLI) | payer MEDICARE, SELFPAY ==
--- NOTE | 2024-03-22 14:02 | EKG12_ITS ---
Test Reason : PRE OP Blood Pressure : / mmHG Vent. Rate : 067 BPM Atrial Rate : 067 BPM P-R Int : 162 ms QRS Dur : 076 ms QT Int : 380 ms P-R-T Axes : 051 037 078 degrees QTc Int : 401 ms Normal sinus rhythm Septal infarct , age undetermined Abnormal ECG Confirmed by ANNALEE PINEDA, RINA ([id number]), manuscript editor VITALIY DUBOIS ([id number]) on 03/23/2024 10:47:59 AM Referred By: Kay Morris Confirmed By:RINA MANTILLA MD
[2024-03-22 14:42] LABS: Absolute Lymphocyte Count 3.41 X10^3/uL (0.83-4.51); Absolute Neutrophil Count 5.3 X10^3/uL (2.0-7.7); Basophil# 0.07 X10^3/uL; Basophil% 0.6 % (0-1); Eosinophil# 1.24 X10^3/uL; Eosinophils% 11.4 % (0-5); Hematocrit 43.5 % (37-47); Hemoglobin 13.9 g/dL (12.0-15.0); Lymphocyte # 3.41 X10^3/ul (0.83-4.51); Lymphocyte % 31.4 % (19-41); Mean Corpuscular Hgb 28.4 pg (27.0-32.0); Mean Platelet Vol. 9.3 fl (6.2-12.0); Monocyte# 0.75 X10^3/uL; Monocyte% 6.9 % (0-10); NRBC Flagged by Analyzer 0 % (0-5); Neutrophil # 5.33 X10^3/uL (2.7-7.7); Neutrophil % 49.2 % (47-70); Platelet Count 318 K/mm3 (150-450); RBC Distribution Width CV 13.9 % (11.6-14.6); Red Blood Count 4.89 M/mm3 (4.2-5.4); White Blood Count 10.9 K/mm3 (4.4-11.0)
[2024-03-22 14:53] LABS: Anion Gap 4 (5-15); BUN 32 mg/dL (7-18); BUN/Creat Ratio 27.4 RATIO (10-20); Calcium,Total 10.3 mg/dL (8.5-10.1); Chloride 109 mmol/L (98-107); Creatinine, Serum 1.17 mg/dL (0.55-1.02); EST Glomerular Filtration Rate 48 mL/min (>60); Est Glom Filt Rate - Afr Amer 58 mL/min (>60); Glucose 116 mg/dL (74-106); Potassium 4.6 mmol/L (3.5-5.1); Sodium Level 138 mmol/L (136-145)
== END | disposition home or self-care (01) ==
LOC: SDC 12:16
PROVIDERS: PCP Nurse Practitioner Family; Referring Provider Urology; Visit Provider Urology
DX: Z01.818 Encounter for other preprocedural examination (principal); N39.0 Urinary tract infection, site not specified; Z53.9 Procedure and treatment not carried out, unspecified reason
CPT/HCPCS: 36415; 80048; 85025; 87086; 87088; 93005